=== PATIENT | male | born 1990 ===

== ENCOUNTER 2017-12-14 06:53 | Day surgery (SDC) | payer OTHER ==
[~2017-12-14 06:53] MED LIST: EPINEPHrine 1:1000 Nasal Sol(30mL) ONE; Lidocaine/Epinephrine 1% 1:100000 10 ML IJ ONE; ceFAZolin 1 gm in NS 1 GM/100 ML BAG IVPB ONE
[2017-12-14] MEDS ORDERED: Acetaminophen-Codeine 300/30 mg Tab PO PRN (08:15)
[2017-12-14] MEDS ORDERED: Dextrose 5%/0.45% NS 1,000 ML IV SCH (08:15)
[2017-12-14] MEDS ORDERED: Lactated Ringer's 1,000 ML IV ONE ×3 (09:55→11:55)
[2017-12-14] MEDS ORDERED: Midazolam 2 MG/2 ML VIAL ONE (09:59)
[2017-12-14] MEDS ORDERED: ceFAZolin 1 gm in NS 1 GM/100 ML BAG IVPB ONE (09:59)
[2017-12-14] MEDS ORDERED: Propofol 10 mg/ml Inj (20 ML) ONE (09:59)
[2017-12-14] MEDS ORDERED: Succinylcholine Chloride 20 mg/ml Syr (5 ml) IV ONE (09:59)
[2017-12-14] MEDS ORDERED: Rocuronium 10 mg/ml (5 ml) ONE (09:59)
[2017-12-14] MEDS ORDERED: Albuterol HFA 90 mcg/actuation (8 g) ONE (10:00)
[2017-12-14 13:19] VITALS: BP 134/73; PULSE 79; RESP 18; TEMP 97.7; O2SAT 96
--- NOTE | 2017-12-14 23:05 | OP ---
PROCEDURE DATE: 12/14/2017 PREOPERATIVE DIAGNOSIS: Sinusitis, deviated septum, large turbinates. POSTOPERATIVE DIAGNOSIS: Sinusitis, deviated septum, large turbinates. PROCEDURES: Endoscopic bilateral ethmoidectomy, endoscopic bilateral maxillary antrostomy, endoscopic bilateral inferior turbinate reduction, and septoplasty. SIGNIFICANT FINDINGS: Deviated septum, large turbinates, maxillary antrum stenosed on both sides, sinusitis changes noted in the ethmoid sinuses. DESCRIPTION OF PROCEDURE: The patient was brought into room, placed in supine position. Anesthesia was initiated through an ET tube. Adrenaline-soaked pledgets were inserted into nasal cavity, remained there for at least 5 minutes and removed. Navigation was continued throughout the case in order to ensure that the orbit and skull base were not entered. The patient was draped in the usual manner. The septum was injected with lidocaine with epinephrine on both sides. It was noted that the patient has previous septoplasty done and the cartilage was missing. A Mario Alberto incision was made on the left and the flap was raised. It was noted that the patient has a very large inferior bony spur, flap was raised over the bony spur and on the other side of the bony spur, a chisel was used to remove the bony spur and portion of the bone posteriorly. It was noted that the patient had septal perforation, 1 cm in the horizontal dimension, 4 mm in the vertical dimension. A quilting suture was used to suture the two flaps together. A 0 degree scope was inserted into the nasal cavity. The inferior turbinates were reduced using scissors going from an [id number], [id number] direction on both sides, first on the left, then on the right. Bleeding was controlled using suction cautery. Attention was turned to the left. The middle turbinate was injected with lidocaine with epinephrine and medialized. The uncinate process was medialized using a [place] elevator and removed using forceps. Debrider was used to enter the ethmoid bulla inferomedially, going posteriorly to the basal lamella, anteriorly and superiorly until the ethmoid bulla was removed. The basal lamella was entered. Posterior ethmoid cells were entered, opened, skull base was identified and followed anteriorly all the way to the area of anterior ethmoid air cells. Curved suction hooked up to navigation was used to locate the maxillary antrum which was noted to be stenosed and opened using forceps. Attention was turned to the other side. The middle turbinate was injected with lidocaine with epinephrine and medialized. The uncinate process was medialized using a [place] elevator and removed using forceps. A debrider was used to enter the ethmoid bulla inferomedially going posteriorly to the basal lamella anteriorly and superiorly until the ethmoid bulla was removed. The basal lamella was entered. Posterior ethmoid cells were entered and opened. Skull base was identified and followed anteriorly all the way to the area of the anterior ethmoid air cells. Curved suction hooked up to navigation was used to locate the maxillary antrum, which was noted to be stenosed and opened using forceps. Suction cautery was used on both sides to control bleeding as well as adrenaline-soaked pledgets. Stents were placed. Splints were placed. The patient was taken off anesthesia and taken to recovery room in stable manner. Jesus Arnold MD
== END 2017-12-14 14:00 | disposition home or self-care (01) ==
LOC: C.SDS 06:53
PROVIDERS: ATTEND Otolaryngology
DX: J34.2 Deviated nasal septum (principal); J34.3 Hypertrophy of nasal turbinates; J32.0 Chronic maxillary sinusitis
CPT/HCPCS: 30130; 30520; 31255; 31256; 88304; J0690; J2001; J2250; J2704; J3010; J7120